=== PATIENT | female | born 1935 | race Caucasian/White ===

== ENCOUNTER 2018-02-15 16:38 | Emergency (ER) | payer SELFPAY ==
[~2018-02-15] VITALS: Ht 160 cm; Wt 60.0 kg
[2018-02-15 16:48] VITALS: BP 120/66
== END 2018-02-15 20:00 | disposition left against medical advice (07) ==
LOC: ER 19:50
DX: R07.89 Other chest pain (principal); V43.62XA Car passenger injured in collision with other type car in traffic accident, initial encounter; Y93.89 Activity, other specified; Y92.488 Other paved roadways as the place of occurrence of the external cause
CPT/HCPCS: 99281